=== PATIENT | female | born 1970 | race Caucasian/White ===

== ENCOUNTER 2024-12-23 12:05 | Emergency (ER) | payer OTHER ==
[~2024-12-23] VITALS: Ht 160 cm; Wt 78.0 kg
[~2024-12-23 12:05] MED LIST: ACET325 PO; CYCL10 PO; HYDACE5 PO; HYDACE5325 PO; IBUP800 PO; ONDA4 PO
[2024-12-23] MEDS ORDERED: TIZA4 PO (12:14)
[2024-12-23] MEDS ORDERED: Lidocaine 4% 1 Patch TOP ONE (13:15)
[2024-12-23] MEDS ORDERED: MOBIC15 MG PO (13:29)
== END 2024-12-23 13:57 | disposition home or self-care (01) ==
LOC: ER 12:05
DX: S89.91XA Unspecified injury of right lower leg, initial encounter (principal); X58.XXXA Exposure to other specified factors, initial encounter
CPT/HCPCS: 73560-RT; 99283-25; A9270